=== PATIENT | female | born 1970 | race Caucasian/White ===

== ENCOUNTER 2017-04-25 18:20 | Inpatient (IN) | payer MEDICAID, OTHER ==
[2017-04-25] MEDS: SOD CHLORIDE 0.9% 2,860 ML IV (19:19)
[2017-04-25 19:38] LABS: ADD MAN DIFF? NO
[2017-04-25 19:42] LABS: BASOPHILS % 0.2 % (0.0-2.0); HEMATOCRIT 44.4 % (37.0-47.0); HEMOGLOBIN 14.4 g/dl (12.0-16.0); LYMPHOCYTES # 2.5 10^3/ul (0.8-2.9); LYMPHOCYTES % 14.7 % (15.0-51.0); MEAN CORPUSCULAR HEMOGLOBIN 26.8 pg (29.0-33.0); MEAN CORPUSCULAR HGB CONC 32.4 g/dl (32.0-37.0); MEAN CORPUSCULAR VOLUME 82.7 fl (82.0-101.0); MEAN PLATELET VOLUME 10.7 fl (7.4-10.4); MONOCYTE # 1.2 10^3/ul (0.3-0.9); MONOCYTES % 7.3 % (0.0-11.0); NEUTROPHIL # 12.5 10^3/ul (1.6-7.5); NEUTROPHILS % 74.8 % (39.0-77.0); NUCLEATED RED BLOOD CELLS% 0.2 /100WBC (0.0-0.0); PLATELET COUNT 521 10^3/UL (140-415); RED BLOOD COUNT 5.37 10^6/ul (4.20-5.40); RED CELL DISTRIBUTION WIDTH 14.7 % (11.5-14.5)
[2017-04-25 19:42] LABS: WHITE BLOOD COUNT 16.8 10^3/ul (4.8-10.8)
[2017-04-25 20:07] LABS: INR 1.03; PROTIME 13.6 Sec (11.9-14.9); PT RATIO 1.1
[2017-04-25 20:08] LABS: PARTIAL THROMBOPLASTIN TIME 26.4 Sec (25.0-35.0)
[2017-04-25 20:11] LABS: ALANINE AMINOTRANSFERASE 195 IU/L (13-69); ALBUMIN 3.7 g/dl (3.3-4.9); ALBUMIN/GLOBULIN RATIO 1.37; ALKALINE PHOSPHATASE 63 IU/L (42-121); ANION GAP 22 (8-16); ASPARTATE AMINO TRANSFERASE 212 IU/L (15-46); BILIRUBIN,INDIRECT 0.5 mg/dl (0-1.1); BILIRUBIN,TOTAL 0.5 mg/dl (0.2-1.3); BLOOD UREA NITROGEN 30 mg/dl (7-20); CALCIUM 8.9 mg/dl (8.4-10.2); CARBON DIOXIDE 20 mmol/L (21-31); CHLORIDE 99 mmol/L (97-110); CREATININE 0.75 mg/dl (0.44-1.00); GLUCOSE 160 mg/dl (70-220); POTASSIUM 3.9 mmol/L (3.5-5.1); SODIUM 137 mmol/L (135-144); TOTAL PROTEIN 6.4 g/dl (6.1-8.1)
[2017-04-25 20:12] LABS: ETHANOL < 10.0 mg/dl
[2017-04-25 20:13] LABS: LACTIC ACID 9.4 mmol/L (0.5-2.0)
[2017-04-25 20:22] LABS: ADD UMIC YES; UR ASCORBIC ACID 40 mg/dL (NEGATIVE); UR BACTERIA FEW /HPF (NONE SEEN); UR BILIRUBIN (Dip) 1+ mg/dL (NEGATIVE); UR BLOOD (Dip) NEGATIVE (NEGATIVE); UR CLARITY CLEAR (CLEAR); UR COLOR AMBER (YELLOW); UR GLUCOSE (Dip) 1+ mg/dL (NEGATIVE); UR KETONES (Dip) NEGATIVE (NEGATIVE); UR LEUKOCYTE ESTERASE (Dip) NEGATIVE Leu/ul (NEGATIVE); UR MUCUS FEW /HPF (NONE SEEN); UR NITRITE (Dip) NEGATIVE (NEGATIVE); UR RBC 0 /HPF (0-5); UR SPECIFIC GRAVITY (Dip) 1.038 (1.003-1.030); UR TOTAL PROTEIN (Dip) 2+ mg/dl (NEGATIVE); UR UROBILINOGEN (Dip) 2+ mg/dL (NEGATIVE); UR WBC 2 /HPF (0-5)
[2017-04-25 20:30] LABS: AMPHETAMINE/METHAMPHETAMINE Negative (NEGATIVE); BARBITURATES Negative (NEGATIVE); BENZODIAZEPINES Negative (NEGATIVE); CANNABINOIDS Negative (NEGATIVE); COCAINE Negative (NEGATIVE); OPIATES Negative (NEGATIVE)
[2017-04-25] MEDS ORDERED: ASPIRIN 81 MG TAB (20:30)
[2017-04-25] MEDS: ONDANSETRON 4 MG INJ IV (20:34)
[2017-04-25] MEDS: morphine 2 MG INJ IV (20:34)
[2017-04-25] MEDS: ASPIRIN (EC) 325 MG TAB PO (20:45)
[2017-04-25] MEDS: CEFEPIME 1GM/50 ML (PMX) 50 ML IVPB (21:25)
[2017-04-25] MEDS: KETOROLAC 30 MG INJ IV (21:36)
[2017-04-25] MEDS: VANCOMYCIN 1 GM (PMX) 250 ML IVPB (22:03)
[2017-04-25] MEDS ORDERED: LIDOCAINE 1% (MDV) 20 ML INJ (22:28)
[2017-04-25 22:59] LABS: LACTIC ACID 9.8 mmol/L (0.5-2.0)
[2017-04-25] MEDS ORDERED: FENTAnyl 50 MCG/ML VIAL (23:01)
[2017-04-25] MEDS ORDERED: MIDAZOLAM 1 MG/ML 2 ML INJ (23:01)
[2017-04-26] MEDS ORDERED: FUROSEMIDE 40 MG INJ (00:43)
[2017-04-26] MEDS: morphine 2 MG INJ IV (01:18)
[2017-04-26 01:51] LABS: LACTIC ACID 9.4 mmol/L (0.5-2.0)
[2017-04-26 02:27] LABS: C-REACTIVE PROTEIN 1.2 mg/dl (0.0-0.9)
[2017-04-26] MEDS: HYDROmorphONE 0.5 MG/0.5 ML SYG IV ×3 (02:31→20:30)
[2017-04-26 02:44] LABS: CREATINE KINASE 4427 IU/L (23-200)
[2017-04-26 02:45] LABS: CK INDEX 0.8
[2017-04-26 03:18] LABS: ERYTHROCYTE SEDIMENTATION RATE 4 mm/Hr (0-20)
[2017-04-26 04:06] LABS: ADD MAN DIFF? NO
[2017-04-26 04:23] LABS: WHITE BLOOD COUNT 15.5 10^3/ul (4.8-10.8)
[2017-04-26 04:23] LABS: BASOPHIL # 0.1 10^3/ul (0.0-0.1); BASOPHILS % 0.5 % (0.0-2.0); HEMATOCRIT 44.2 % (37.0-47.0); HEMOGLOBIN 14.1 g/dl (12.0-16.0); LYMPHOCYTES # 1.7 10^3/ul (0.8-2.9); LYMPHOCYTES % 10.9 % (15.0-51.0); MEAN CORPUSCULAR HEMOGLOBIN 26.8 pg (29.0-33.0); MEAN CORPUSCULAR HGB CONC 31.9 g/dl (32.0-37.0); MEAN CORPUSCULAR VOLUME 83.9 fl (82.0-101.0); MEAN PLATELET VOLUME 10.7 fl (7.4-10.4); MONOCYTE # 1.3 10^3/ul (0.3-0.9); MONOCYTES % 8.2 % (0.0-11.0); NEUTROPHIL # 11.8 10^3/ul (1.6-7.5); NEUTROPHILS % 76.1 % (39.0-77.0); NUCLEATED RED BLOOD CELLS% 0.2 /100WBC (0.0-0.0); PLATELET COUNT 533 10^3/UL (140-415); RED BLOOD COUNT 5.27 10^6/ul (4.20-5.40); RED CELL DISTRIBUTION WIDTH 14.9 % (11.5-14.5)
[2017-04-26 05:17] LABS: LACTIC ACID 6.2 mmol/L (0.5-2.0)
[2017-04-26] MEDS: PANTOPRAZOLE 40 MG INJ IV (06:35)
[2017-04-26 08:12] LABS: LACTIC ACID 4.9 mmol/L (0.5-2.0)
[2017-04-26 08:23] LABS: CK INDEX 1.2; CREATINE KINASE 2643 IU/L (23-200)
[2017-04-26] MEDS: COLCHICINE 0.6 MG TAB PO ×2 (08:53→20:26)
[2017-04-26] MEDS: IBUPROFEN 800 MG TAB PO ×4 (08:53→20:26)
[2017-04-26 10:02] LABS: ANION GAP 16 (8-16); BLOOD UREA NITROGEN 30 mg/dl (7-20); CARBON DIOXIDE 23 mmol/L (21-31); CHLORIDE 104 mmol/L (97-110); CREATININE 0.66 mg/dl (0.44-1.00); GLUCOSE 141 mg/dl (70-220); MAGNESIUM 2.3 mg/dl (1.7-2.5); POTASSIUM 3.9 mmol/L (3.5-5.1); SODIUM 139 mmol/L (135-144)
[2017-04-26] MEDS: ONDANSETRON 4 MG INJ IV (11:48)
[2017-04-26] MEDS: LORAZEPAM 2 MG INJ IV (11:56)
[2017-04-26] MEDS ORDERED: FUROSEMIDE 20 MG INJ IM (17:30)
[2017-04-26] MEDS: CEFTRIAXONE 1 GM/50 ML (PMX) 50 ML IVPB (18:21)
[2017-04-26] MEDS: FUROSEMIDE 20 MG INJ IV (18:40)
[2017-04-26] MEDS: AZITHROMYCIN 500MG/NS (PMX) 250 ML IVPB (21:23)
[2017-04-27] MEDS ORDERED: PHENYLephrine 20MG IN 250 ML 250 ML (01:30)
[2017-04-27] MEDS: SOD CHLORIDE 0.9% 250 ML IV (01:50)
[2017-04-27] MEDS: KETOROLAC 30 MG INJ IV (01:53)
[2017-04-27] MEDS ORDERED: ACETAMINOPHEN 325 MG TAB PO (02:00)
[2017-04-27] MEDS: PANTOPRAZOLE 40 MG INJ IV (05:22)
[2017-04-27] MEDS: traMADol 50 MG TAB PO (05:22)
[2017-04-27 05:57] LABS: ABNORMAL IP MESSAGE 1; HEMATOCRIT 40.2 % (37.0-47.0); HEMOGLOBIN 12.9 g/dl (12.0-16.0); MEAN CORPUSCULAR HEMOGLOBIN 26.8 pg (29.0-33.0); MEAN CORPUSCULAR HGB CONC 32.1 g/dl (32.0-37.0); MEAN CORPUSCULAR VOLUME 83.6 fl (82.0-101.0); MEAN PLATELET VOLUME 10.5 fl (7.4-10.4); NUCLEATED RED BLOOD CELLS% 4.8 /100WBC (0.0-0.0); PLATELET COUNT 531 10^3/UL (140-415); RED BLOOD COUNT 4.81 10^6/ul (4.20-5.40)
[2017-04-27 05:57] LABS: WHITE BLOOD COUNT 14.9 10^3/ul (4.8-10.8)
[2017-04-27 06:00] LABS: ADD MAN DIFF? YES; POSITIVE DIFF @See below
[2017-04-27 06:30] LABS: ANION GAP 16 (8-16); BLOOD UREA NITROGEN 37 mg/dl (7-20); CALCIUM 8.5 mg/dl (8.4-10.2); CARBON DIOXIDE 26 mmol/L (21-31); CHLORIDE 101 mmol/L (97-110); GLUCOSE 135 mg/dl (70-220); MAGNESIUM 2.5 mg/dl (1.7-2.5); PHOSPHORUS 3.5 mg/dl (2.5-4.9); POTASSIUM 3.9 mmol/L (3.5-5.1); SODIUM 139 mmol/L (135-144)
[2017-04-27 06:38] LABS: CHOLESTEROL 126 mg/dl (100-200)
[2017-04-27 06:38] LABS: CHOL/HDL RATIO 5.2 RATIO; HDL CHOLESTEROL 24 mg/dl (34-88); LDL CHOLESTEROL,CALCULATED 48 mg/dl; TRIGLYCERIDES 269 mg/dl (0-149)
[2017-04-27 06:58] LABS: LACTIC ACID 3.1 mmol/L (0.5-2.0)
[2017-04-27 07:13] LABS: ANISOCYTOSIS 1+ (0-0); BAND NEUTROPHILS #M 0.8 10^3/ul (0.0-0.6); BAND NEUTROPHILS % (M) 6 % (0-4); ERYTHROBLAST% (NRBC) (M) 10 % (0-0); GIANT THROMBO% (M) 3 % (0-0); LYMPHOCYTES #M 2.6 10^3/ul (0.8-2.9); LYMPHOCYTES % (M) 18 % (15-51); METAMYELOCYTES #M 0.1 10^3/ul (0.0-0.0); METAMYELOCYTES %M 1 % (0-0); MICROCYTOSIS 1+ (0-0); MONOCYTE #M 1.3 10^3/ul (0.3-0.9); MONOCYTES % (M) 9 % (0-11); MYELOCYTES #M 0.4 10^3/ul (0.0-0.0); MYELOCYTES % (M) 3 % (0-0); PLATELET ESTIMATE INCREASED; SEG NEUT #M 9.5 10^3/ul (1.6-7.5); SEGMENTED NEUTROPHILS (M) % 63 % (39-77); SMUDGE%M 9 % (0-0)
[2017-04-27 07:56] LABS: HEMOGLOBIN A1C 6.1 % (0-5.9)
[2017-04-27] MEDS: IBUPROFEN 800 MG TAB PO ×3 (09:48→20:12)
[2017-04-27] MEDS: COLCHICINE 0.6 MG TAB PO ×2 (09:49→20:12)
[2017-04-27 12:56] LABS: LACTIC ACID 2.9 mmol/L (0.5-2.0)
[2017-04-27] MEDS: FUROSEMIDE 40 MG INJ IV (14:36)
[2017-04-27] MEDS: CEFTRIAXONE 1 GM/50 ML (PMX) 50 ML IVPB (19:48)
[2017-04-27] MEDS: AZITHROMYCIN 500MG/NS (PMX) 250 ML IVPB (20:48)
[2017-04-27] MEDS: ZOLPIDEM 5 MG TAB PO (22:53)
[2017-04-28] MEDS: PANTOPRAZOLE 40 MG INJ IV (06:38)
[2017-04-28] MEDS: FUROSEMIDE 40 MG INJ IV (06:41)
[2017-04-28 08:34] LABS: ADD MAN DIFF? NO
[2017-04-28 08:42] LABS: WHITE BLOOD COUNT 15.2 10^3/ul (4.8-10.8)
[2017-04-28 08:42] LABS: ABNORMAL IP MESSAGE 1; BASOPHIL # 0.1 10^3/ul (0.0-0.1); BASOPHILS % 0.7 % (0.0-2.0); EOSINOPHILS % 0.1 % (0.0-7.0); HEMATOCRIT 39.6 % (37.0-47.0); HEMOGLOBIN 12.6 g/dl (12.0-16.0); LYMPHOCYTES # 1.6 10^3/ul (0.8-2.9); LYMPHOCYTES % 10.2 % (15.0-51.0); MEAN CORPUSCULAR HEMOGLOBIN 27.1 pg (29.0-33.0); MEAN CORPUSCULAR HGB CONC 31.8 g/dl (32.0-37.0); MEAN CORPUSCULAR VOLUME 85.2 fl (82.0-101.0); MEAN PLATELET VOLUME 10.3 fl (7.4-10.4); MONOCYTE # 1.2 10^3/ul (0.3-0.9); MONOCYTES % 7.7 % (0.0-11.0); NEUTROPHIL # 11.6 10^3/ul (1.6-7.5); NEUTROPHILS % 76.1 % (39.0-77.0); NUCLEATED RED BLOOD CELLS # 1.4 10^3/ul (0.0-0.0); NUCLEATED RED BLOOD CELLS% 8.9 /100WBC (0.0-0.0); PLATELET COUNT 459 10^3/UL (140-415); RED BLOOD COUNT 4.65 10^6/ul (4.20-5.40); RED CELL DISTRIBUTION WIDTH 15.7 % (11.5-14.5)
[2017-04-28] MEDS: COLCHICINE 0.6 MG TAB PO ×2 (08:44→20:25)
[2017-04-28] MEDS: SENNA TAB PO ×2 (08:44→20:25)
[2017-04-28] MEDS: MAGNESIUM HYDROXIDE 30ML CUP PO (08:44)
[2017-04-28] MEDS: IBUPROFEN 800 MG TAB PO ×3 (08:44→20:25)
[2017-04-28 08:56] LABS: POSITIVE DIFF @See below
[2017-04-28 09:11] LABS: MAGNESIUM 2.5 mg/dl (1.7-2.5)
[2017-04-28 09:17] LABS: ANION GAP 14 (8-16); BLOOD UREA NITROGEN 33 mg/dl (7-20); CALCIUM 8.2 mg/dl (8.4-10.2); CARBON DIOXIDE 29 mmol/L (21-31); CHLORIDE 100 mmol/L (97-110); CREATININE 0.84 mg/dl (0.44-1.00); GLUCOSE 110 mg/dl (70-220); SODIUM 140 mmol/L (135-144)
[2017-04-28] MEDS: POTASSIUM CHLORIDE (SR) 20 MEQ TAB PO ×2 (10:30→13:08)
[2017-04-28] MEDS: CEFTRIAXONE 1 GM/50 ML (PMX) 50 ML IVPB (18:01)
[2017-04-28] MEDS: AZITHROMYCIN 500MG/NS (PMX) 250 ML IVPB (20:24)
[2017-04-29] MEDS: PANTOPRAZOLE 40 MG INJ IV ×2 (00:56→05:34)
[2017-04-29] MEDS: KETOROLAC 30 MG INJ IV (00:56)
[2017-04-29] MEDS: FUROSEMIDE 40 MG INJ IV (05:33)
[2017-04-29 06:54] LABS: WHITE BLOOD COUNT 11.5 10^3/ul (4.8-10.8)
[2017-04-29 06:54] LABS: ABNORMAL IP MESSAGE 1; HEMATOCRIT 37.9 % (37.0-47.0); MEAN CORPUSCULAR HEMOGLOBIN 27.3 pg (29.0-33.0); MEAN CORPUSCULAR HGB CONC 31.7 g/dl (32.0-37.0); MEAN CORPUSCULAR VOLUME 86.3 fl (82.0-101.0); NUCLEATED RED BLOOD CELLS% 1.6 /100WBC (0.0-0.0); PLATELET COUNT 397 10^3/UL (140-415); RED BLOOD COUNT 4.39 10^6/ul (4.20-5.40); RED CELL DISTRIBUTION WIDTH 17.2 % (11.5-14.5)
[2017-04-29 06:59] LABS: ADD MAN DIFF? YES; POSITIVE DIFF @See below
[2017-04-29] MEDS ORDERED: GUAIFENESIN 20 MG/ML 5ML CUP PO (07:00)
[2017-04-29 07:28] LABS: ANION GAP 14 (8-16); BLOOD UREA NITROGEN 30 mg/dl (7-20); CALCIUM 8.4 mg/dl (8.4-10.2); CARBON DIOXIDE 29 mmol/L (21-31); CHLORIDE 104 mmol/L (97-110); CREATININE 0.86 mg/dl (0.44-1.00); GLUCOSE 124 mg/dl (70-220); MAGNESIUM 2.6 mg/dl (1.7-2.5); SODIUM 144 mmol/L (135-144)
[2017-04-29 07:45] LABS: POTASSIUM 2.8 mmol/L (3.5-5.1)
[2017-04-29 08:36] LABS: ANISOCYTOSIS 2+ (0-0); BAND NEUTROPHILS #M 0.6 10^3/ul (0.0-0.6); BAND NEUTROPHILS % (M) 6 % (0-4); ERYTHROBLAST% (NRBC) (M) 1 % (0-0); GIANT THROMBO% (M) 1 % (0-0); LYMPHOCYTES #M 1.7 10^3/ul (0.8-2.9); LYMPHOCYTES % (M) 15 % (15-51); MICROCYTOSIS 2+ (0-0); MONOCYTES % (M) 9 % (0-11); MYELOCYTES #M 0.3 10^3/ul (0.0-0.0); MYELOCYTES % (M) 3 % (0-0); PLATELET ESTIMATE NORMAL; POLYCHROMASIA 1+ (0-0); SEG NEUT #M 7.8 10^3/ul (1.6-7.5); SEGMENTED NEUTROPHILS (M) % 67 % (39-77); SMUDGE%M 12 % (0-0)
[2017-04-29] MEDS: COLCHICINE 0.6 MG TAB PO ×2 (08:53→20:14)
[2017-04-29] MEDS: IBUPROFEN 800 MG TAB PO ×3 (08:53→20:14)
[2017-04-29] MEDS: MAGNESIUM HYDROXIDE 30ML CUP PO (08:59)
[2017-04-29] MEDS: SENNA TAB PO ×2 (08:59→20:14)
[2017-04-29] MEDS: POTASSIUM CHLORIDE (SR) 20 MEQ TAB PO ×2 (14:06→15:26)
[2017-04-29] MEDS: PROMETHAZINE/CODEINE 5ML CUP PO (16:48)
[2017-04-29] MEDS: CEFTRIAXONE 1 GM/50 ML (PMX) 50 ML IVPB (17:25)
[2017-04-29] MEDS: AZITHROMYCIN 500MG/NS (PMX) 250 ML IVPB (20:14)
[2017-04-30] MEDS: PANTOPRAZOLE 40 MG INJ IV (06:13)
[2017-04-30] MEDS: FUROSEMIDE 40 MG INJ IV (06:14)
[2017-04-30 08:16] LABS: ABNORMAL IP MESSAGE 1; HEMATOCRIT 38.3 % (37.0-47.0); MEAN CORPUSCULAR HEMOGLOBIN 27.3 pg (29.0-33.0); MEAN CORPUSCULAR HGB CONC 31.3 g/dl (32.0-37.0); MEAN PLATELET VOLUME 10.2 fl (7.4-10.4); NUCLEATED RED BLOOD CELLS% 0.3 /100WBC (0.0-0.0); PLATELET COUNT 355 10^3/UL (140-415); RED CELL DISTRIBUTION WIDTH 18.2 % (11.5-14.5)
[2017-04-30 08:16] LABS: WHITE BLOOD COUNT 7.8 10^3/ul (4.8-10.8)
[2017-04-30 08:23] LABS: POSITIVE DIFF @See below
[2017-04-30 08:24] LABS: ADD MAN DIFF? YES
[2017-04-30 08:48] LABS: ANION GAP 12 (8-16); BLOOD UREA NITROGEN 21 mg/dl (7-20); CALCIUM 8.5 mg/dl (8.4-10.2); CARBON DIOXIDE 28 mmol/L (21-31); CHLORIDE 110 mmol/L (97-110); CREATININE 0.81 mg/dl (0.44-1.00); GLUCOSE 118 mg/dl (70-220); MAGNESIUM 2.1 mg/dl (1.7-2.5); PHOSPHORUS 3.3 mg/dl (2.5-4.9); POTASSIUM 3.3 mmol/L (3.5-5.1); SODIUM 147 mmol/L (135-144)
[2017-04-30 08:58] LABS: LACTIC ACID 2.6 mmol/L (0.5-2.0)
[2017-04-30] MEDS: MAGNESIUM HYDROXIDE 30ML CUP PO (09:00)
[2017-04-30] MEDS: SENNA TAB PO (09:20)
[2017-04-30] MEDS: IBUPROFEN 800 MG TAB PO ×2 (09:20→13:00)
[2017-04-30] MEDS: COLCHICINE 0.6 MG TAB PO (09:20)
[2017-04-30 10:32] LABS: ANISOCYTOSIS 3+ (0-0); BAND NEUTROPHILS #M 0.3 10^3/ul (0.0-0.6); BAND NEUTROPHILS % (M) 5 % (0-4); EOSINOPHILS % (M) 1 % (0-7); GIANT THROMBO% (M) 4 % (0-0); LYMPHOCYTES #M 1.3 10^3/ul (0.8-2.9); LYMPHOCYTES % (M) 17 % (15-51); MICROCYTOSIS 2+ (0-0); MONOCYTE #M 0.3 10^3/ul (0.3-0.9); MONOCYTES % (M) 5 % (0-11); MYELOCYTES #M 0.1 10^3/ul (0.0-0.0); MYELOCYTES % (M) 2 % (0-0); PLATELET ESTIMATE NORMAL; POIKILOCYTOSIS 1+ (0-0); POLYCHROMASIA 3+ (0-0); REACTIVE LYMPHOCYTES #M 0.2 10^3/ul (0.0-0.0); REACTIVE LYMPHOCYTES% (M) 3 % (0-0); SEG NEUT #M 5.2 10^3/ul (1.6-7.5); SEGMENTED NEUTROPHILS (M) % 67 % (39-77); SMUDGE%M 3 % (0-0)
[2017-04-30] MEDS ORDERED: POTASSIUM CHLORIDE (SR) 20 MEQ TAB PO (11:09)
[2017-04-30] MEDS: POTASSIUM CHLORIDE 20 MEQ POWDER FOR ORAL SOLN PO ×2 (11:52→15:54)
[2017-04-30] MEDS: POTASSIUM CHLORIDE (SR) 20 MEQ TAB PO (15:53)
[2017-04-30] MEDS: LISINOPRIL 5 MG TAB PO (15:53)
== END 2017-04-30 18:45 | disposition home or self-care (01) | DRG 286 ==
LOC: ICU 04-26 00:55 → CCL 22:20 → E/R 18:20 → SDS 22:20 → CCL 04-26 00:55 → ICU 04-26 00:55 → TEL 04-27 15:45 → CCL 22:20 → SDS 22:20
PROC: 4A023N6 Measurement of Cardiac Sampling and Pressure, Right Heart, Percutaneous Approach (ICD-10-PCS; principal; 2017-04-25 00:32)
PROC: 0W9D30Z Drainage of Pericardial Cavity with Drainage Device, Percutaneous Approach (ICD-10-PCS; 2017-04-25 00:32)
DX: I30.1 Infective pericarditis (principal); I50.21 Acute systolic (congestive) heart failure; I31.4 Cardiac tamponade; E87.2 Acidosis; R65.10 Systemic inflammatory response syndrome (SIRS) of non-infectious origin without acute organ dysfunction; I40.0 Infective myocarditis; B33.24 Viral cardiomyopathy; B97.89 Other viral agents as the cause of diseases classified elsewhere
CPT/HCPCS: 33010; 36415; 71045; 71275; 76705; 80048; 80053; 80061; 80306; 80307; 81001; 82550; 82553; 83036; 83605; 83735; 84100; 84484; 84703; 85025; 85610; 85651; 85730; 86140; 86850; 86900; 86901; 87040; 87081; 87086; 87400; 93005; 93306; 93308; 96374; 96375; 99291-25; J1940